=== PATIENT | female | born 1955 | race African-American/Black ===

== ENCOUNTER 2020-06-09 10:22 | Emergency (ER) | payer SELFPAY ==
[~2020-06-09] VITALS: Ht 167.6 cm; Wt 95.3 kg
--- NOTE | 2020-06-09 10:22 | NUR ---
Patient BIBA BLS, transferred to bed 2. RN evaluating patient at bedside.
[2020-06-09 10:53] VITALS: BP 164/95
--- NOTE | 2020-06-09 11:15 | NUR ---
PT SEEN. NO CURRENT C/O CHEST PAIN BUT DOES STATE PAIN HAS BEEN INTERMITENT WITH COUGH. PT C/O R SIDED JAW SWELLING AND "CONCERN FOR AIRWAY". PT ALSO C/O BODYACHES WITH TEMP 100.6. PT PLACED IN PRECAUTIONS FOR COVID 19 FOR TIME BEING. PT WITH NORMAL HEART RATE AND PULSE OX, BP ELEVATED 165/94. PT STATES SHE HAS NOT TAKEN HER NORVASC [id number] DUE TO LOSS OF INSURANCE BUT IS COMPLIANT WITH OTHER BP MEDS.
--- NOTE | 2020-06-09 11:53 | NUR ---
Patient discharged with v/s stable. Written and verbal after care instructions given and explained. Patient alert, oriented and verbalized understanding of instructions. Ambulatory with steady gait. All questions addressed prior to discharge. ID band removed. Patient advised to follow up with PMD. Rx of AUGMENTIN,NORVASC,NORCO given. Patient educated on indication of medication including possible reaction and side effects. Opportunity to ask questions provided and answered.
== END 2020-06-09 11:53 | disposition home or self-care (01) ==
LOC: MED 10:22
DX: K04.7 Periapical abscess without sinus (principal); I10 Essential (primary) hypertension; R73.03 Prediabetes; Z90.49 Acquired absence of other specified parts of digestive tract; Z90.711 Acquired absence of uterus with remaining cervical stump
CPT/HCPCS: 99283

== ENCOUNTER 2021-04-05 16:28 | Emergency (ER) | payer BC, OTHER ==
[~2021-04-05] VITALS: Ht 167.6 cm; Wt 90.8 kg
[2021-04-05 17:02] VITALS: BP 177/114
[2021-04-05 19:25] LABS: BASOPHILS # (AUTO) 0.1 K/uL (0.00-0.22); BASOPHILS % (AUTO) 1.1 % (0.0-2.0); EOSINOPHILS # (AUTO) 0.2 K/uL (0-0.4); EOSINOPHILS % (AUTO) 1.8 % (0.0-4.0); HEMATOCRIT 38.1 % (36-48); HEMOGLOBIN 12.5 g/dL (12.0-16.0); LYMPHOCYTES # (AUTO) 3.7 K/uL (2.5-16.5); LYMPHOCYTES % (AUTO) 36.2 % (20.5-51.1); MEAN CORPUSCULAR HEMOGLOBIN 28 pg (27-31); MEAN CORPUSCULAR HGB CONC 33 g/dL (33-37); MEAN CORPUSCULAR VOLUME 84.4 fL (80-94); MONOCYTES # (AUTO) 0.7 K/uL (0.8-1.0); MONOCYTES % (AUTO) 7.2 % (1.7-9.3); NEUTROPHILS # (AUTO) 5.5 K/uL (1.8-7.7); NEUTROPHILS % (AUTO) 53.7 % (42.2-75.2); PLATELET COUNT (AUTO) 253 K/uL (140-450); RED BLOOD CELL COUNT(AUTO) 4.52 MIL/uL (4.20-5.40); RED CELL DISTRIBUTION WIDTH 14.4 % (11.6-13.7); WHITE BLOOD COUNT (AUTO) 10.3 K/uL (4.8-10.8)
[2021-04-05 19:39] LABS: ANION GAP 9.3 (8-16); CARBON DIOXIDE 29.8 mmol/L (21-32); POTASSIUM 4.1 mmol/L (3.5-5.1)
--- NOTE | 2021-04-05 20:04 | NUR ---
PT TAKEN TO BED 10
[2021-04-05] MEDS ORDERED: KETOROLAC 30 MG/ML VIAL IM ONE (20:10)
--- NOTE | 2021-04-05 20:10 | NUR ---
Dr. Benedict examining patient.
--- NOTE | 2021-04-05 20:17 | NUR ---
PT TAKEN TO XRAY
--- NOTE | 2021-04-05 20:24 | NUR ---
PT RETURN FROM RADIOLOGY
--- NOTE | 2021-04-05 21:11 | NUR ---
Ultrasound at bedside.
[2021-04-05] MEDS ORDERED: FURO-572 PO (23:13)
[2021-04-05] MEDS ORDERED: ACET-10509 PO (23:13)
[2021-04-05 23:28] VITALS: BP 168/82
--- NOTE | 2021-04-05 23:28 | NUR ---
Patient discharged with v/s stable. Written and verbal after care instructions given and explained. Patient alert, oriented and verbalized understanding of instructions. Ambulatory with steady gait. All questions addressed prior to discharge. ID band removed. Patient advised to follow up with PMD. Rx of LASIX, ACETAMINOPHEN given. Patient educated on indication of medication including possible reaction and side effects. Opportunity to ask questions provided and answered.
== END 2021-04-05 23:28 | disposition home or self-care (01) ==
LOC: MED 16:28
DX: I80.01 Phlebitis and thrombophlebitis of superficial vessels of right lower extremity (principal); I80.02 Phlebitis and thrombophlebitis of superficial vessels of left lower extremity; R60.9 Edema, unspecified; M77.31 Calcaneal spur, right foot; M77.32 Calcaneal spur, left foot
CPT/HCPCS: 36415; 71045; 73630; 80048; 83880; 85025; 93970; 96372; 99285; J1885

== ENCOUNTER 2021-09-02 13:42 | Emergency (ER) | payer OTHER ==
[~2021-09-02] VITALS: Ht 170.2 cm; Wt 88.5 kg
[~2021-09-02 13:42] MED LIST: ACET-10509 PO; FURO-572 PO
--- NOTE | 2021-09-02 14:05 | NUR ---
ATTEMPTED TO TRIAGE ALONG WITH DR BRAY, NO ANSWER IN LOBBY/TENT
--- NOTE | 2021-09-02 14:57 | NUR ---
DR BRAY CALLED PT IN ATTEMPT, WAITING FOR CALL BACK.
[2021-09-02] MEDS ORDERED: HYDR-2853 PO (16:37)
[2021-09-02] MEDS ORDERED: ATEN50TA8 PO (16:37)
[2021-09-02] MEDS ORDERED: AMLO5TAB PO (16:37)
[2021-09-02] MEDS ORDERED: ATOR40TA PO (16:37)
[2021-09-02 16:40] VITALS: BP 198/121
--- NOTE | 2021-09-02 16:47 | NUR ---
PT SEEN AND D/C BY DR BRAY, NO NURSING INTERVENTIONS PROVIDED
--- NOTE | 2021-09-02 16:48 | NUR ---
Patient discharged with v/s stable. Written and verbal after care instructions ABOUT MED REFILL AND HYPERTENSION given and explained. Patient alert, oriented and verbalized understanding of instructions. Ambulatory with steady gait. All questions addressed prior to discharge. ID band removed. Patient advised to follow up with PMD. Rx of AMLODIPINE, ATEOLOL, LIPITOR, LISINOPRIL given. Patient educated on indication of medication including possible reaction and side effects. Opportunity to ask questions provided and answered.
== END 2021-09-02 16:48 | disposition home or self-care (01) ==
LOC: MED 13:42
DX: I10 Essential (primary) hypertension (principal); Z76.0 Encounter for issue of repeat prescription; Z79.899 Other long term (current) drug therapy
CPT/HCPCS: 99283

== ENCOUNTER 2022-01-16 09:36 | Outpatient (CLI) | payer OTHER ==
[~2022-01-16 09:36] MED LIST changes: +AMLO5TAB PO; +ATEN50TA8 PO; +ATOR40TA PO; +HYDR-2853 PO
[2022-01-16 10:18] LABS: BASOPHILS % (AUTO) 0.5 % (0.0-2.0); EOSINOPHILS # (AUTO) 0.2 K/uL (0-0.4); EOSINOPHILS % (AUTO) 2.1 % (0.0-4.0); HEMOGLOBIN 12.5 g/dL (12.0-16.0); LYMPHOCYTES # (AUTO) 3.1 K/uL (2.5-16.5); LYMPHOCYTES % (AUTO) 39.9 % (20.5-51.1); MEAN CORPUSCULAR HEMOGLOBIN 28 pg (27-31); MEAN CORPUSCULAR HGB CONC 32 g/dL (33-37); MEAN CORPUSCULAR VOLUME 85.6 fL (80-94); MONOCYTES # (AUTO) 0.5 K/uL (0.8-1.0); MONOCYTES % (AUTO) 6.7 % (1.7-9.3); NEUTROPHILS # (AUTO) 3.9 K/uL (1.8-7.7); NEUTROPHILS % (AUTO) 50.8 % (42.2-75.2); PLATELET COUNT (AUTO) 227 K/uL (140-450); RED BLOOD CELL COUNT(AUTO) 4.55 MIL/uL (4.20-5.40); RED CELL DISTRIBUTION WIDTH 14.1 % (11.6-13.7); WHITE BLOOD COUNT (AUTO) 7.8 K/uL (4.8-10.8)
[2022-01-16 10:50] LABS: ALBUMIN 3.7 g/dL (3.4-5.0); ANION GAP 11.8 (8-16); CARBON DIOXIDE 27.8 mmol/L (21-32); CHOL/HDL RATIO 3.2 (1-4.5); CREATININE 0.7 mg/dL (0.6-1.3); POTASSIUM 3.6 mmol/L (3.5-5.1); THYROID STIMULATING HORMONE 0.76 uIU/mL (0.34-3.74); TOTAL BILIRUBIN 0.5 mg/dL (0.0-1.0)
== END 2022-01-16 21:30 | disposition home or self-care (01) ==
LOC: MLB 09:36
PROVIDERS: ATTEND Internal Medicine Geriatric Medicine
DX: Z00.00 Encounter for general adult medical examination without abnormal findings (principal); I10 Essential (primary) hypertension
CPT/HCPCS: 36415; 80053; 82306; 83036; 84443; 85025

== ENCOUNTER 2022-05-23 18:35 | Emergency (ER) | payer OTHER ==
[~2022-05-23] VITALS: Ht 170.2 cm; Wt 89.0 kg
[2022-05-23 18:50] VITALS: BP 214/97
--- NOTE | 2022-05-23 20:52 | NUR ---
PT AMBULATED TO ER BED 6
[2022-05-23] MEDS ORDERED: METOPROLOL 5 MG/5 ML VIAL IVP ONE (21:25)
[2022-05-23 21:41] LABS: BASOPHILS % (AUTO) 0.5 % (0.0-2.0); EOSINOPHILS # (AUTO) 0.1 K/uL (0-0.4); EOSINOPHILS % (AUTO) 1.8 % (0.0-4.0); HEMATOCRIT 38.6 % (36-48); HEMOGLOBIN 12.4 g/dL (12.0-16.0); LYMPHOCYTES # (AUTO) 3.5 K/uL (2.5-16.5); LYMPHOCYTES % (AUTO) 41.5 % (20.5-51.1); MEAN CORPUSCULAR HEMOGLOBIN 27 pg (27-31); MEAN CORPUSCULAR HGB CONC 32 g/dL (33-37); MEAN CORPUSCULAR VOLUME 83.3 fL (80-94); MONOCYTES # (AUTO) 0.6 K/uL (0.8-1.0); MONOCYTES % (AUTO) 7.2 % (1.7-9.3); NEUTROPHILS # (AUTO) 4.1 K/uL (1.8-7.7); PLATELET COUNT (AUTO) 274 K/uL (140-450); RED BLOOD CELL COUNT(AUTO) 4.63 MIL/uL (4.20-5.40); RED CELL DISTRIBUTION WIDTH 14.2 % (11.6-13.7); WHITE BLOOD COUNT (AUTO) 8.4 K/uL (4.8-10.8)
[2022-05-23] MEDS: METOPROLOL SUCCINATE 50 MG TABER PO SCH ×2 (21:49→22:11)
[2022-05-23 22:02] LABS: ANION GAP 11.3 (8-16); CARBON DIOXIDE 31.9 mmol/L (21-32); POTASSIUM 3.2 mmol/L (3.5-5.1)
[2022-05-23] MEDS ORDERED: LID5T TP (22:34)
[2022-05-23] MEDS ORDERED: ACET-8386 PO (22:34)
[2022-05-23] MEDS ORDERED: HYDROcodone/APAP 5/325 MG 1 TAB TAB PO ONE (22:35)
--- NOTE | 2022-05-23 22:44 | NUR ---
PATIENT PAIN LEVEL 6/10 FOR HEADACHE . MEDS GIVEN . WILL CONTINUE MONITOR PT PAIN LEVEL AND B/P
--- NOTE | 2022-05-23 22:53 | NUR ---
66YR OLD FEMALE BIB SELF C/O HIGH B/P . PT STATES PAULA S/P FROM B/P. PAIN LEVEL 10. DENIES SOB. HAS CHEST DISCOMFORT 01/10. PRESSURE LIKE TIGHTNESS. PT IS A&OX4. SKIN WARM DRY AND INTACT. RESP EVEN AND UNLABORED. PT IS ON BEDSIDE LOCATION MAN. HOB ELEVATED. BED IN LOWEST POSITION. SIDE RAILS UP X2. NKDA HTN STROKE EDEMA
[2022-05-23 22:59] VITALS: BP 165/80
--- NOTE | 2022-05-23 22:59 | NUR ---
Patient discharged with v/s stable. Written and verbal after care instructions given and explained. Patient alert, oriented and verbalized understanding of instructions. Ambulatory with steady gait. All questions addressed prior to discharge. ID band removed. Patient advised to follow up with PMD. Rx of HYDROCODONE/ACETAMINOPHEN, LIDOCAINE given.
[2022-05-24] MEDS ORDERED: ACET-8386 PO (17:06)
== END 2022-05-23 22:59 | disposition home or self-care (01) ==
LOC: MED 18:35
DX: I10 Essential (primary) hypertension (principal)
CPT/HCPCS: 36415; 80048; 84484; 85025; 99283; J3490